=== PATIENT | male | born 1985 | race Two or more races ===

== ENCOUNTER 2017-04-16 06:57 | Emergency (ER) | payer OTHER ==
[2017-04-16 07:15] VITALS: BP 151/92; PULSE 70; RESP 18; TEMP 97.9; O2SAT 96
[2017-04-16] MEDS ORDERED: ACETAMINOPHEN 500 MG TAB PO ONE (07:31)
[2017-04-16] MEDS ORDERED: IBUPROFEN 200 MG TAB PO ONE (07:31)
[2017-04-16] MEDS ORDERED: LET GEL TOPICAL 1 EA SYR TP ONE (07:31)
--- NOTE | 2017-04-16 07:39 | EDPHY ---
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 2 metal plates come together for this and his left hand got caught between the 2 plates causing compressive injury to the distal 2nd and 3rd metacarpal region of left hand associated with an abrasion or superficial laceration the same region. He reports moderate pain. He had 400 mg of ibuprofen prior to arrival for this injury that occurred this morning at 5:00 a.m.. The patient reports mild improvement with the ibuprofen and notes no other exacerbating factors except for worsening with movement of the 2nd and 3rd fingers. 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 Patient is Occitan-speaking only. ROS: Neuro: No numbness or tingling Musculoskeletal: No other injuries 5 point ROS is otherwise negative Past Medical/Surgical History: Otherwise healthy Physical Exam: Physical Exam Vital signs are normal. General: No acute distress Eyes: Pupils equal and react to light. Extraocular motions are intact. Lungs: No respiratory distress. Cardiac: Brisk capillary refill is intact throughout. Pulses are 2+ and symmetric in the affected extremity. Skin: No rash or pallor. There is a superficial abrasion overlying the distal left 2nd metacarpal dorsal aspect 1 cm x 5 mm. No full-thickness injury. No active bleeding. No foreign bodies. Extremities: Atraumatic normal except for left hand Left hand: Patient has mild swelling and tenderness to the region of the dorsal 2nd distal metacarpal head more than 3rd. No malrotation of associated fingers or finger tenderness. No laxity to metacarpal or interphalangeal joints arm 2nd or 3rd fingers. No finger swelling. Neuro: Alert and oriented x3 with no sensorimotor deficits. Initial differential diagnosis: Traumatic hand contusion, fracture, abrasion, Constitutional: Initial Vital Signs Temperature (C) 36.6 C 04/16/17 07:13 Heart Rate 70 04/16/17 07:13 Respiratory Rate 18 04/16/17 07:13 Blood Pressure 151/92 H 04/16/17 07:13 O2 Sat (%) 96 04/16/17 07:13 O2 Delivery Mode Room Air Allergies/Adverse Reactions: No Known Allergies Allergy (Unverified 04/16/17 07:12) Home Medications: Medication Instructions Recorded Ibuprofen [Motrin (*)] 600 mg PO Q6 PRN #30 tab 04/16/17 MDM/Departure - MDM Diagnostics: Hand x-ray: Negative for fracture by my interpretation Imaging Results: Imaging Impressions Hand X-Ray 04/16/17 07:11 Impression: Nothing acute identified. If symptoms persist consider follow-up x- ray in 7-10 days to look for an occult fracture. Imaging: I viewed and interpreted images myself Medications Given: Discontinued Medications Acetaminophen (Tylenol) 1,000 mg PO EDNOW ONE Stop: 04/16/17 07:32 Last Admin: 04/16/17 07:38 Dose: 1,000 mg Ibuprofen (Motrin) 200 mg PO EDNOW ONE Stop: 04/16/17 07:32 Last Admin: 04/16/17 07:38 Dose: 200 mg Tetracaine/Epinephrine/Lidocaine (Let Gel Topical) 1 ea TP EDNOW ONE Stop: 04/16/17 07:32 Last Admin: 04/16/17 07:40 Dose: 1 ea ED Course/Re-evaluation: Abrasion was clean by our tech after let solution anesthesia. Bandage was applied followed by Ravi wrap. Discussion: Metacarpal contusions with abrasion. No evidence of fracture, sprain or other concerning findings. - Depart Disposition: Home, Routine, Self-Care Clinical Impression: Hand abrasion Qualifiers: Encounter type: initial encounter Laterality: left Qualified Code(s): S60.512A - Abrasion of left hand, initial encounter Hand contusion Qualifiers: Encounter type: initial encounter Laterality: left Qualified Code(s): S60.222A - Contusion of left hand, initial encounter Condition: Good Instructions: Contusion in Adults (ED), Abrasion (ED) Additional Instructions: Diagnosis: Hand abrasion and contusion Plan: Clean the abrasion daily Ibuprofen and Tylenol for pain as needed Ravi wrap for comfort for the next few days Recheck with work comp clinic in 2 to 3 days No use of the injured hand at work for the next 2 days. Return emergency department if he develops redness, discharge or other concerns for infection. Prescriptions: Ibuprofen [Motrin (*)] 600 mg PO Q6 PRN #30 tab PRN Reason: Pain Referrals: NONE *PRIMARY CARE P,. [Primary Care Provider] - As per Instructions
== END 2017-04-16 08:11 | disposition home or self-care (01) ==
LOC: CED 06:57
DX: S60.222A Contusion of left hand, initial encounter (principal); S60.512A Abrasion of left hand, initial encounter; W23.1XXA Caught, crushed, jammed, or pinched between stationary objects, initial encounter; Y92.69 Other specified industrial and construction area as the place of occurrence of the external cause; Y99.0 Civilian activity done for income or pay; Y93.89 Activity, other specified
CPT/HCPCS: 73130-PO